=== PATIENT | male | born 1970 | race Caucasian/White ===

== ENCOUNTER 2018-11-11 22:44 | Outpatient (REF) | payer BC, SELFPAY | END 2018-11-11 23:04 | LOC: NCHCN 22:44 | PROVIDERS: PCP Family Medicine; Visit Provider Family Medicine | DX: R50.81 Fever presenting with conditions classified elsewhere (principal); L05.91 Pilonidal cyst without abscess | CPT/HCPCS: 87070; 87205 ==

== ENCOUNTER 2018-12-25 14:56 | Outpatient (CLI) | payer BC, SELFPAY ==
[2018-12-25 15:12] LABS: Abs Immature Grans 0.03 k/cumm (0.0-0.09); Absolute Basophil Count 0.04 k/cumm (0.0-0.2); Absolute Eosinophil Count 0.37 k/cumm (0.0-0.7); Absolute Lymphocyte Count 1.03 k/cumm (1.2-3.4); Absolute Monocyte Count 0.58 k/cumm (0.11-0.7); Absolute Neutrophil Count 6.99 k/cumm (1.2-6.7); Basophils % 0.4; Eosinophils % 4.1; HCT 43.2 % (40.0-50.0); HGB 14.7 g/dL (13.5-17.5); Immature Grans % 0.3; Lymphocytes % 11.4; Mean Corpuscular Hemoglobin 29.1 pg (27.0-33.0); Mean Corpuscular Volume 85.5 fL (80-95); Mean Platelet Volume 9.4 fL (8.0-11.0); Monocytes % 6.4; Neutrophils % 77.4; Platelet Count 249 x1000/uL (130-400); RBC 5.05 m/cumm (4.50-6.00); RBC Distribution Width 14.2 % (11.8-14.1); White Blood Cell Count 9.04 k/cumm (4.4-10.8)
[2018-12-25 15:23] LABS: Anion Gap 8.5 mmol/L (3-11); BUN 13 mg/dL (7-18); CO2 27.5 mmol/L (21.0-32.0); CREATININE 0.93 mg/dL (0.70-1.30); Calcium 8.9 mg/dL (8.5-10.1); Chloride 102 mmol/L (98-107); Glucose 89 mg/dL (70-100); Potassium 3.8 mmol/L (3.5-5.1); Sodium 138 mmol/L (136-145)
[2018-12-25 15:44] LABS: D-Dimer 776 ng/mlFEU (<500)
== END 2018-12-25 15:16 ==
PROVIDERS: PCP Family Medicine; Visit Provider Family Medicine
DX: R06.02 Shortness of breath (principal); R05 Cough; R07.9 Chest pain, unspecified
CPT/HCPCS: 36415; 80048; 85025; 85379

== ENCOUNTER 2018-12-25 17:07 | Emergency (ER) | payer BC, SELFPAY ==
[2018-12-25] VITALS (37 sets, daily range): BP systolic 131–161; BP diastolic 77–110; PULSE 71–92; RESP 1–25; TEMP 37.6; O2SAT 92–100
--- NOTE | 2018-12-25 17:26 | DI.CT_ITS ---
SYMPTOM/DIAGNOSIS: RT BASE RHONCHI, SOB, DDIMER SENT OUTPT ELEVATED CT ANGIOGRAPHY CHEST: 12/25 CT angiography was performed with multi slice acquisition and multi planar and 3D reconstruction. CT angiography of the chest was performed with a bolus infusion of 100 cc of Omnipaque 350. Images obtained through the upper abdomen show unremarkable appearance of visualized portions of liver, spleen, adrenals, kidneys and pancreas. There is no evidence of pulmonary embolic disease. No thoracic aortic dissection or aneurysm. No mediastinal or hilar adenopathy. Tracheobronchial tree appears intact. There are changes of linear pulmonary scarring in the lung bases particularly posteriorly. There is subpleural emphysema most prominent in the lung apices. Mild central lobular emphysema also noted. No focal consolidation seen. No pleural effusion seen. Questionable 3 mm right peripheral intrapulmonary nodule in the right lung base, this may represent an area of scarring but a follow up chest CT is recommended in 12 months to re-evaluate this finding particularly if the patient has a smoking history. CONCLUSION: No evidence of pulmonary embolic disease. Emphysema noted. Questionable 3 mm right lower lobe peripheral intrapulmonary nodule, follow up chest CT recommended in 12 months.
--- NOTE | 2018-12-25 17:28 | W.ED.GENAD ---
Discharge Plan Discharge Details Chief Complaint: SOB Primary Care Provider: Jenn Seals V ED Provider: Wilmer Monroe Home Meds and New Rx's Prescriptions: No Action acetaminophen [Tylenol] 325 MG tablet 650 mg PO Q4H PRN PRNQty: 30 RF: 0 Medical Decision Making 48-year-old male referred by Dr. Shah. 2 weeks ago he was treated for URI with Z-Torey and prednisone which she states resulted in improvement. Now with 2 days of recurrent cough, congestion and posterior right-sided discomfort with shortness of breath. He was seen in the office and given prescriptions for Augmentin and prednisone, and outpatient d-dimer was obtained which is elevated and therefore the patient referred to the emergency department. He arrives with normal oxygenation, afebrile, with an exam that reveals rhonchi at the right base. Differential diagnosis would consider pneumonia, must exclude PE given outpatient work-up, patient is at risk for dehydration as well. IV placed, labs obtained, patient given parenteral fluids, DuoNeb updraft, referred for CT scan of the chest. Patient improved with DuoNeb updraft and use of Acapella device. His diagnostic studies reveal a white blood cell count of 9, hematocrit 46, platelets 277. Chemistries with sodium 138, potassium 3.9, chloride 101, bicarb 25, BUN 12, creatinine 1.0, troponin < 0.05 CT: No pulmonary emboli. 3 mm right lung nodule with no routine follow-up indicated. No focal consolidation. Patient is improved. I do believe he has a resolving bronchitis and has had good production of sputum with Acapella device. I feel the previously prescribed course of Augmentin and prednisone is appropriate. He will initiate doses tonight. Additionally, patient provided an albuterol inhaler for as needed use during times of illness. Finally, he will work towards decreasing his tobacco use. ECG Data Attestation: I personally reviewed and interpreted this ECG (s) as follows: Interpretation: Normal sinus rhythm with a rate of 83, the QRS is narrow, there is no ST segment elevation HPI General Mode of arrival: ambulatory. Date/Time Provider Initiated Documentation: 12/25/18 17:15. Limitations to Documentation: no limitations. Information obtained by: patient. History of Present Illness 48 year old M presents to the emergency department with the chief complaint of Recurrent cough, pleuritic pain right side, described as moderate, Quality is described as dull, and is localized to the chest and right. Patient reports radiation to back. Patient started experiencing this hour(s) and it has been intermittent. No relieving factors improve symptom(s), Other factors that worsen symptoms (Coughing) . Patient notes malaise and weakness. Patient did receive the following treatments prior to arrival, none Related Data Home Medications Medication Instructions Recorded Confirmed acetaminophen [Tylenol] 650 mg PO Q4H PRN PRN #30 tab 06/04/17 12/25/18 Previous Rx's Medication Instructions Recorded acetaminophen [Tylenol] 650 mg PO Q4H PRN PRN #30 tab 06/04/17 Allergies Allergy/AdvReac Type Severity Reaction Status Date / Time ibuprofen [From Motrin] AdvReac GI bleed Unverified 10/31/18 10:19 General Stated Complaint: SOB ARAVIND: 3 Review of Systems Review of Systems Weak and lightheaded. No syncope. No fall or injury. No known sick contacts. 8 systems reviewed and otherwise neg [facility] Medical History Cervicalgia Chest pain Depression Foot pain, right Hypoglycemia Onychomycosis Pilonidal cyst Psoriasis Smoker Syncope Surgical History Excision, Pilonidal Cyst (06/04/17) Family History Mother No problems noted. Father Arthritis Kidney disorder COPD (chronic obstructive pulmonary disease) Brother Essential hypertension Social History Smoking/Tobacco Use Status: Current every day Tobacco Type: cigarettes Drug use: Occasionally Do you feel safe at home: Yes Do you feel safe in your relationship?: Yes Exam Narrative Exam Narrative: GEN: awake, alert, oriented 3. Pleasant, well groomed, interactive. HEAD: Normocephalic, atraumatic ENT: Mucous membranes moist, oropharynx unremarkable, External ear exam unremarkable EYES: PERRL, EOMI NECK: Full ROM, no SMILEY, no menigismus CHEST/RESP: Nontender, clear to auscultation bilateral, right base Rhonchi CARDIOVASCULAR: RRR, no murmur, rub jake. 2+ Rad pulse bilateral ABDOMEN: Soft, nontender, no mass. +Bowel sounds EXT: Full ROM, no edema, no rash Neuro: Grossly normal neurologic exam, conversant, interactive. Psych: Speech fluent, thoughts congruent, affect normal Course Vital Signs Temperature 37.6 C H 12/25/18 17:14 Pulse 79 12/25/18 17:14 Respiratory Rate 16 12/25/18 17:14 Blood Pressure 144/109 H 12/25/18 17:14 Pulse Oximetry 98 12/25/18 17:14 Temperature 37.6 C H 12/25/18 17:14 Pulse 79 12/25/18 17:14 Respiratory Rate 16 12/25/18 17:14 Blood Pressure 144/109 H 12/25/18 17:14 Blood Pressure Position Sitting 12/25/18 17:14 Pulse Oximetry 98 12/25/18 17:14 Oxygen Delivery Method Room Air 12/25/18 17:14 Oxygen Flow Rate 0 12/25/18 17:14
--- NOTE | 2018-12-25 17:36 | ED.GENADUL_ITS ---
Discharge Plan Discharge Details Chief Complaint: SOB Primary Care Provider: Jenn Seals V ED Provider: Wilmer Monroe Home Meds and New Rx's Prescriptions: No Action acetaminophen [Tylenol] 325 MG tablet 650 mg PO Q4H PRN PRNQty: 30 RF: 0 Medical Decision Making 48-year-old male referred by Dr. Shah. 2 weeks ago he was treated for URI with Z-Torey and prednisone which she states resulted in improvement. Now with 2 days of recurrent cough, congestion and posterior right-sided discomfort with shortness of breath. He was seen in the office and given prescriptions for Augmentin and prednisone, and outpatient d-dimer was obtained which is elevated and therefore the patient referred to the emergency department. He arrives with normal oxygenation, afebrile, with an exam that reveals rhonchi at the right base. Differential diagnosis would consider pneumonia, must exclude PE given outpatient work-up, patient is at risk for dehydration as well. IV placed, labs obtained, patient given parenteral fluids, DuoNeb updraft, referred for CT scan of the chest. Patient improved with DuoNeb updraft and use of Acapella device. His diagnostic studies reveal a white blood cell count of 9, hematocrit 46, platelets 277. Chemistries with sodium 138, potassium 3.9, chloride 101, bicarb 25, BUN 12, creatinine 1.0, troponin < 0.05 CT: No pulmonary emboli. 3 mm right lung nodule with no routine follow-up indicated. No focal consolidation. Patient is improved. I do believe he has a resolving bronchitis and has had good production of sputum with Acapella device. I feel the previously prescribed course of Augmentin and prednisone is appropriate. He will initiate doses tonight. Additionally, patient provided an albuterol inhaler for as needed use during times of illness. Finally, he will work towards decreasing his tobacco use. ECG Data Attestation: I personally reviewed and interpreted this ECG (s) as follows: Interpretation: Normal sinus rhythm with a rate of 83, the QRS is narrow, there is no ST segment elevation HPI General Mode of arrival: ambulatory . Date/Time Provider Initiated Documentation: 12/25/18 17:15 . Limitations to Documentation: no limitations . Information obtained by: patient . History of Present Illness 48 year old M presents to the emergency department with the chief complaint of Recurrent cough, pleuritic pain right side, described as moderate, Quality is described as dull, and is localized to the chest and right. Patient reports radiation to back. Patient started experiencing this hour(s) and it has been intermittent. No relieving factors improve symptom(s), Other factors that worsen symptoms (Coughing) . Patient notes malaise and weakness. Patient did receive the following treatments prior to arrival, none Related Data Home Medications Medication Instructions Recorded Confirmed acetaminophen [Tylenol] 650 mg PO Q4H PRN PRN #30 tab 06/04/17 12/25/18 Previous Rx's Medication Instructions Recorded acetaminophen [Tylenol] 650 mg PO Q4H PRN PRN #30 tab 06/04/17 Allergies Allergy/AdvReac Type Severity Reaction Status Date / Time ibuprofen [From Motrin] AdvReac GI bleed Unverified 10/31/18 10:19 General Stated Complaint: SOB ARAVIND: 3 Review of Systems Review of Systems Weak and lightheaded. No syncope. No fall or injury. No known sick contacts. 8 systems reviewed and otherwise neg [facility] Medical History Cervicalgia Chest pain Depression Foot pain, right Hypoglycemia Onychomycosis Pilonidal cyst Psoriasis Smoker Syncope Surgical History Excision, Pilonidal Cyst (06/04/17) Family History Mother No problems noted. Father Arthritis Kidney disorder COPD (chronic obstructive pulmonary disease) Brother Essential hypertension Social History Smoking/Tobacco Use Status: Current every day Tobacco Type: cigarettes Drug use: Occasionally Do you feel safe at home: Yes Do you feel safe in your relationship?: Yes Exam Narrative Exam Narrative: GEN: awake, alert, oriented 3. Pleasant, well groomed, interactive. HEAD: Normocephalic, atraumatic ENT: Mucous membranes moist, oropharynx unremarkable, External ear exam unremarkable EYES: PERRL, EOMI NECK: Full ROM, no SMILEY, no menigismus CHEST/RESP: Nontender, clear to auscultation bilateral, right base Rhonchi CARDIOVASCULAR: RRR, no murmur, rub jake. 2+ Rad pulse bilateral ABDOMEN: Soft, nontender, no mass. +Bowel sounds EXT: Full ROM, no edema, no rash Neuro: Grossly normal neurologic exam, conversant, interactive. Psych: Speech fluent, thoughts congruent, affect normal Course Vital Signs Temperature 37.6 C H 12/25/18 17:14 Pulse 79 12/25/18 17:14 Respiratory Rate 16 12/25/18 17:14 Blood Pressure 144/109 H 12/25/18 17:14 Pulse Oximetry 98 12/25/18 17:14 Temperature 37.6 C H 12/25/18 17:14 Pulse 79 12/25/18 17:14 Respiratory Rate 16 12/25/18 17:14 Blood Pressure 144/109 H 12/25/18 17:14 Blood Pressure Position Sitting 12/25/18 17:14 Pulse Oximetry 98 12/25/18 17:14 Oxygen Delivery Method Room Air 12/25/18 17:14 Oxygen Flow Rate 0 12/25/18 17:14
[2018-12-25] MEDS: Albuterol/Ipratropium 3 ML UPD VIAL UPD (17:45)
[2018-12-25 17:49] LABS: Abs Immature Grans 0.03 k/cumm (0.0-0.09); Absolute Basophil Count 0.03 k/cumm (0.0-0.2); Absolute Lymphocyte Count 1.12 k/cumm (1.2-3.4); Absolute Monocyte Count 0.56 k/cumm (0.11-0.7); Absolute Neutrophil Count 7.17 k/cumm (1.2-6.7); Basophils % 0.3; Eosinophils % 4.3; HCT 46.3 % (40.0-50.0); HGB 15.6 g/dL (13.5-17.5); Immature Grans % 0.3; Mean Corp. HGB Concentration 33.7 g/dL (32.0-36.0); Mean Corpuscular Hemoglobin 28.5 pg (27.0-33.0); Mean Corpuscular Volume 84.6 fL (80-95); Neutrophils % 77.1; Platelet Count 277 x1000/uL (130-400); RBC 5.47 m/cumm (4.50-6.00); RBC Distribution Width 14.4 % (11.8-14.1); White Blood Cell Count 9.31 k/cumm (4.4-10.8)
[2018-12-25 18:08] LABS: ALT 25 U/L (12-78); AST 14 U/L (15-37); Albumin 3.7 g/dL (3.4-5.0); Alkaline Phosphatase 72 U/L (46-116); Anion Gap 11.1 mmol/L (3-11); BUN 12 mg/dL (7-18); Bilirubin, Total 0.6 mg/dL (0.2-1.0); CO2 25.9 mmol/L (21.0-32.0); CREATININE 1.01 mg/dL (0.70-1.30); Calcium 9.2 mg/dL (8.5-10.1); Chloride 101 mmol/L (98-107); Glucose 101 mg/dL (70-100); Magnesium 2.2 mg/dL (1.8-2.4); Potassium 3.9 mmol/L (3.5-5.1); Sodium 138 mmol/L (136-145); Total Protein 7.9 g/dL (6.4-8.2)
[2018-12-25 18:11] LABS: Troponin I < 0.05 ng/mL (0.00-0.06)
[2018-12-25] MEDS: Omnipaque 350 MG/ML 100 ML BTL IJ (18:58)
--- NOTE | 2018-12-25 19:42 | DI.VRAD_ITS ---
EXAM: CT Angiography Chest With Contrast EXAM DATE/TIME: 12/25/2018 5:29 PM CLINICAL HISTORY: 48 years old, male; Shortness of breath and other: RT base ronchi, elevated d-dimer TECHNIQUE: Imaging protocol: Axial computed tomographic angiography images of the chest with intravenous contrast using CT angiography protocol. Coronal and sagittal reformatted images were created and reviewed. 3D rendering: MIP reconstructed images were created and reviewed. Radiation optimization: All CT scans at this facility use at least one of these dose optimization techniques: automated exposure control; mA and/or kV adjustment per patient size (includes targeted exams where dose is matched to clinical indication); or iterative reconstruction. Contrast material: [id number]; Contrast volume: 95 ml; Contrast route: IV 18G RIGHT AC; COMPARISON: No relevant prior studies available. FINDINGS: Pulmonary arteries: No pulmonary emboli. Aorta: No aortic aneurysm. No aortic dissection. Lungs: Bilateral changes of paraseptal emphysema. 3 mm right lung nodule, image 48. Pleural space: No pneumothorax. No pleural effusion. Heart: No cardiomegaly. No pericardial effusion. Lymph nodes: Unremarkable. No enlarged lymph nodes. Bones/joints: Unremarkable. No acute fracture. Soft tissues: Unremarkable. IMPRESSION: No pulmonary emboli. Paraseptal emphysema. 3 mm right lung nodule. For patients at low risk (minimal or absent history of smoking and of other known risk factors), no routine follow-up is indicated. For patients at high risk (history of smoking or of other known risk factors), consider optional CT at 12 months. (Bossman et al., Fleischner Society, 2017) Dictated and Authenticated by: Jose Esparza MD. Ordering:JERICA Guillen MD
[2018-12-25] MEDS: Ketorolac 15 MG/ML VIAL IVP (20:19)
[2018-12-25] MEDS: Albuterol HFA 8 GM 60 PUFF INH IH (20:21)
== END 2018-12-25 20:45 | disposition home or self-care (01) ==
PROVIDERS: Emergency Provider Emergency Medicine; PCP Family Medicine
DX: J20.9 Acute bronchitis, unspecified (principal)
CPT/HCPCS: 36415; 71275; 80053; 93005; 94640; 96374; 99285; 83735; 84484; 85025; 93010; J1885; J3490; J7620

== ENCOUNTER 2021-08-25 17:58 | Outpatient (REF) | payer BC, SELFPAY ==
[2021-08-25 21:17] LABS: Abs Immature Grans 0.02 10^3/uL (0.0-0.06); Absolute Basophil Count 0.07 10^3/uL (0.0-0.2); Absolute Eosinophil Count 0.48 10^3/uL (0.0-0.7); Absolute Lymphocyte Count 1.58 10^3/uL (1.2-3.4); Absolute Monocyte Count 0.51 10^3/uL (0.1-0.8); Absolute Neutrophil Count 7.34 10^3/uL (1.2-6.7); Basophils % 0.7; Eosinophils % 4.8; HCT 43.7 % (40.0-50.0); HGB 14.1 g/dL (13.5-17.5); Immature Grans % 0.2; Lymphocytes % 15.8; MCH 27.2 pg (27.0-33.0); MCHC 32.3 % (32.0-36.0); MCV 84.2 fL (80-95); MPV 10.8 fL (8.0-11.0); Monocytes % 5.1; Neutrophils % 73.4; Nucleated RBC 0 %; Platelet Count 325 10^3/uL (130-400); RBC 5.19 10^6/uL (4.36-5.78); RDW 12.6 % (11.8-14.1)
[2021-08-25 21:21] LABS: CREATININE 0.9 mg/dL (0.70-1.30)
== END 2021-08-25 17:59 | disposition home or self-care (01) ==
LOC: LBN 17:58
PROVIDERS: PCP Family Medicine; Visit Provider Physician Assistant Medical
DX: K62.5 Hemorrhage of anus and rectum (principal); K62.89 Other specified diseases of anus and rectum
CPT/HCPCS: 82565; 85025

== ENCOUNTER 2021-08-25 18:12 | Outpatient (CLI) | payer BC, SELFPAY ==
--- NOTE | 2021-08-25 | DI.RAD_ITS ---
Exam(s) XR ABDOMEN FLAT UPRIGHT EXAM: 2D digital imaging was performed. CLINICAL HISTORY: RECTAL PAIN. COMPARISON: No exams were available for comparison TECHNIQUE: Supine and upright views of the abdomen was performed. FINDINGS: LUNG BASES: Clear. BOWEL GAS PATTERN: Nondistended. FREE AIR: None. CALCIFICATIONS: No radiopaque calcifications. OSSEOUS STRUCTURES: Normal for age. OTHER FINDINGS: None. IMPRESSION: No evidence of an acute abdomen. DATA REPOSITORY: RADIATION DOSE DELIVERED:
--- NOTE | 2021-08-25 18:44 | DI.VRAD_ITS ---
PROCEDURE INFORMATION: Exam: XR Abdomen Exam date and time: 08/25/2021 6:14 PM Age: 51 years old Clinical indication: Other: Rectal pain TECHNIQUE: Imaging protocol: XR of the abdomen. Views: 2 Views. Upright and supine views. Total images: 4 COMPARISON: CT CHEST PE CTA 12/25/2018 6:56 PM FINDINGS: Heart/Mediastinum: Heart size normal. Lungs: The visualized lung bases are clear. Gastrointestinal tract: Nonobstructive bowel gas pattern. No evidence of pneumatosis or portal gas. Intraperitoneal space: No free air is evident. Organs: No evidence of organomegaly. Bones/joints: No acute osseous abnormalities. Other findings: No pathological calcifications. No gross soft tissue masses. IMPRESSION: No acute intra-abdominal/intrapelvic process is identified. Dictated and Authenticated by: James Torres MD. Ordering:ALEK Reddy MD
== END 2021-08-25 18:32 ==
LOC: DI 18:12
PROVIDERS: PCP Family Medicine; Visit Provider Physician Assistant Medical
DX: K62.89 Other specified diseases of anus and rectum (principal)
CPT/HCPCS: 74019

== ENCOUNTER 2021-11-06 11:25 | Day surgery (SDC) | payer BC, SELFPAY ==
--- NOTE | 2021-11-06 06:47 | W.COLOREPORT ---
Colonoscopy Report Date of procedure: 11/06/21 Pre-op diagnosis general: LLQ pain Post-op diagnosis procedure note: same Procedure: Colonoscopy Surgeon: Bella Bradley Anesthesia Type: General:No Airway Estimated blood loss (mL): 0 Pathology: none sent Complications: None Disposition: same day Indications: Mr. Burroughs is a 51-year-old with left lower quadrant abdominal pain and rectal bleeding.? He also has a left inguinal hernia.? He is a lot more tender than I would expect with a small inguinal hernia which is easily reduced.? I am also concerned about the 3 weeks of rectal bleeding that he had.? I recommend that we proceed with a colonoscopy first and then if that is negative we can talk about repairing his left inguinal hernia.? I discussed the colonoscopy in detail as well as the risks and benefits and he wished to proceed. Risks, benefits and complications have been reviewed. Complications include but are not limited to bleeding, pain, perforation, missed small lesion/polyp, sore throat, aspiration and adverse reaction to the medications. Questions were entertained and answered to their satisfaction and they wished to proceed. No guarantees were given or implied. Proceed with colonoscopy Prep: Miralax/Dulcolax Procedure Start Time: 13:04 Procedure End Time: 13:23 Retraction Time: 9 minutes Findings: Normal Procedure Description: After informed consent was obtained the patient was taken to the procedure room and placed in a left decubitous position. Monitors were applied and a time out was done. The patients name, date of , procedure, allergies to medications and metal in their body was reviewed. The patient was then sedated. Once sedated and comfortable a rectal exam was done. External exam was normal. Internal exam revealed a normal sphincter tone and no palpable masses. The prostate felt smooth. The scope was then introduced and retro-flexed. No internal hemorrhoids, polyps or masses were identified on retro-flexion. The scope was then advanced to the cecum without difficulty. The ileocecal vlave and appendiceal orifice were identified. The prep was adequate. The scope was then slowly retracted over 9 minutes back into the rectum. There were no polyps and no diverticulosis noted. The scope was removed and the patient was woken up and taken back to Same day surgery in stable condition. The patient tolerated the procedure well and there were no immediate complications. Follow up: The patient should follow up in 10 years unless they develop changes in bowel habits or other new gastrointestinal complaints.
--- NOTE | 2021-11-06 06:48 | PDOC.DSDIS_ITS ---
Discharge Plan Disposition Patient Disposition: HOME Condition: Good Discharge Details Reason For Visit: Colonoscopy Attending Provider: Bella Bradley Primary Care Provider: Jenn Seals V Home Meds and New Rx's Prescriptions: Continued docusate sodium 100 mg capsule 100 mg PO DAILY 0RF diazepam [Valium] 5 mg tablet 5 mg PO ONCE PRN0RF Rx Instructions: take 1 cap by mouth 30 - 60 minutes before dental appointments. nicotine [Nicoderm CQ] 14 mg/24 hr patch 24 hour 1 patch transdermal DAILY 0RF nicotine [Nicoderm CQ] 21 mg/24 hr patch 24 hour 1 patch transdermal DAILY 0RF albuterol sulfate [Ventolin HFA] 90 mcg/actuation HFA aerosol inhaler 2 puff inhalation Q6H PRN0RF acetaminophen [Tylenol] 325 MG tablet 650 mg PO Q4H PRN PRNQty: 30 0RF Discontinued polyethylene glycol 3350 [Miralax] 17 gram/dose powder 17 g PO DAILY 0RF Discharge Instructions Additional Instructions: Findings: Normal Follow up: 10 years for next colonoscopy Follow up in 2 weeks in the office to discuss your pain and potential inguinal hernia repair Please call if you develop: fevers >101.5 Nausea or Vomiting Abdominal pain that is not transient Rectal bleeding that is more then a tbsp A hard abdomen and inability to pass gas DAY SURGERY UNIT POST ENDOSCOPY INSTRUCTIONS Instructions for everyone who is given Anesthesia: For your safety, please do the following for the next 24 Hours: a. Do not drive or operate dangerous equipment b. Do not drink alcohol beverages or use any recreational drugs for the first 24 hours or while taking pain medications. The medications in your body may have a reaction that can be dangerous. c. Do not make any important decisions or sign any important papers 1. Generally there are no restrictions on your activity after a day or so has g one by, but you may feel a bit fatigued for a few days. 2. After you arrive home you may have a light meal and return to a normal diet as you can tolerate it without feeling sick to your stomach. 3. After surgery, you may feel pain or discomfort. This should be only transient, but if it persists please contact your doctor. 4. If there are any questions regarding the findings of your procedure, please feel free to contact your doctor. 6. If you are unable to contact your doctor with a problem, contact the hospital at [phone]. 7. Continue all your regular medications unless directed otherwise. I understand the above instructions and have no questions. Signature of Patient or Responsible Adult Escort Date/Time Name of Responsible Adult Escort Signature of Nurse Date/Time Activity:: Activity as Tolerated Diet:: As Tolerated Discharge Orders Discharge Orders: Discharge Order (Routine); Ordered 11/06/21 Ordered By: Bella Bradley
[2021-11-06 11:45] VITALS: BP 148/102; PULSE 85; RESP 16; TEMP 36.3; O2SAT 98
[2021-11-06] MEDS: Lactated Ringers 1,000 ML 80 ML IV (12:18)
--- NOTE | 2021-11-06 12:39 | ANES.PREOP_ITS ---
General Info Date of Service Date Performed: 11/06/21 Height: 5 ft 7 in Weight: 83 kg Body Mass Index (BMI): 28.6 Surgical Procedure: Operation Date: 11/06/21 13:05 Proposed Procedure Side Surgeon p Colonoscopy Bella Bradley MD Meds Allergies and Home Medications Allergies Allergy/AdvReac Type Severity Reaction Status Date / Time clindamycin Allergy Intermediate Verified 11/06/21 11:57 ibuprofen [From Motrin] AdvReac GI bleed Unverified 11/06/21 11:57 Home Medication Medication Instructions Recorded acetaminophen 325 mg tablet 650 mg PO Q4H PRN PRN #30 tab 06/04/17 (Tylenol) albuterol sulfate 90 mcg/actuation 2 puff INHALATION Q6H PRN 10/26/21 aerosol inhaler (Ventolin HFA) diazepam 5 mg tablet (Valium) 5 mg PO ONCE PRN tab 10/26/21 docusate sodium 100 mg capsule 100 mg PO DAILY 10/26/21 nicotine 14 mg/24 hr daily 1 patch TRANSDERMAL DAILY 10/26/21 transdermal patch (Nicoderm CQ) nicotine 21 mg/24 hr daily 1 patch TRANSDERMAL DAILY 10/26/21 transdermal patch (Nicoderm CQ) polyethylene glycol 3350 17 17 g PO DAILY 10/26/21 gram/dose oral powder (Miralax) Current Visit Medications: Current Medications Generic Name Dose Route Start Last Admin Trade Name Freq PRN Reason Stop Dose Admin Hyoscyamine Sulfate 0.125 mg 11/06/21 06:48 Hyoscyamine 0.125 Mg Sl/Oral/Chew SL DIRECTED PRN Ringer's Solution 1,000 mls @ 80 mls/hr 11/06/21 06:00 11/06/21 12:18 IV 12/03/21 23:59 80 mls/hr INFUSION LEANN Administration IV Miscellaneous Supplies 1 each 11/06/21 06:00 Iv Access IV 12/03/21 23:59 DIRECTED LEANN Ondansetron HCl 4 mg 11/06/21 06:48 Ondansetron 4 Mg/2 Ml Vial IVP Q4H PRN PRN Nausea / Vomiting Sodium Chloride 0 ml 11/06/21 06:00 Normal Saline Flush 10 Ml Syr IV 12/03/21 23:59 PRN PRN Sodium Chloride 0 ml 11/06/21 06:00 Normal Saline 10 Ml Vial IJ 12/03/21 23:59 DIRECTED PRN Sterile Water 0 ml 11/06/21 06:00 Water,Injection,Sterile 10 Ml Vial IJ 12/03/21 23:59 DIRECTED PRN PFSH Active Problems Active Problems: Problem Status Onset Code Abdominal pain R10.9 Left inguinal hernia K40.90 Shortness of breath R06.02 Bradycardia R00.1 Near syncope R55 LLQ pain R10.32 Medical History Medical History Abnormal findings on diagnostic imaging of lung Cervicalgia Chest pain pt. stated this ended up being acid reflux Cough Depression Foot pain, right Hypoglycemia Onychomycosis Pilonidal cyst Plantar fasciitis Psoriasis Rectal bleed Scalp lesion Smoker Squamous cell cancer of skin of forearm Syncope pt. stated this was diet related and hadn't eaten at all that day URI (upper respiratory infection) Urinary frequency Surgical History Surgical History (Updated 11/06/21 @ 11:57 by Luiza Moreno) Excision, Pilonidal Cyst (06/04/17) History of arthroscopic knee surgery Tobacco Smoking/Tobacco Use Status: Current every day Tobacco Type: cigarettes Alcohol Alcohol Intake: current Alcohol intake frequency: holidays/special occasions only Substance Use Substance use: Occasionally Substance use type: marijuana Vital Signs and Lab Results Vital Signs Most Recent Vital Signs in EMR: Most Recent Vital Signs Temp Pulse Resp BP Pulse Ox 36.3 C L 85 16 148/102 H 98 11/06/21 11:45 11/06/21 11:45 11/06/21 11:45 11/06/21 11:45 11/06/21 11:45 Lab Results Blood Type / Crossmatch: No Data to Display Complete Blood Count: 2 No Data to Display Complete Metabolic Panel: No Data to Display Liver Function Panel: No Data to Display Coagulation Panel: No Data to Display Cardiac Panel: No Data to Display Arterial Blood Gas: No Data to Display Venous Blood Gas: No Data to Display Pancreas Panel: No Data to Display Thyroid Panel: No Data to Display Infectious Disease: No Data to Display Blood Cultures: No Data to Display Toxicology Panel: No Data to Display Anesthesia Assessment and Plan Anesthesia History Personal History: No History of Anesthesia Complications Family History: No Family History of Anesthesia Complications Exercise Tolerance Exercise Tolerance: Metabolic Equivalents>4 Cardiac & Pulmonary Exam Cardiac Exam: Normal S1/S2 Heart Sounds Pulmonary Exam: Clear Bilateral Breath Sounds Implantable Cardiac Device Does patient have a Pacemaker or an ICD?: No Airway Exam Known Difficult Airway: No Mallampati Class: 2 Mouth Opening: Normal (> 3cm) Thyromental Distance: Greater than 3 cm Facial Hair: Full Block Neck Range of Motion: Full ROM Neck Circumference: Normal Teeth Condition: Normal Dentition ASA Classification ASA Score: ASA 2 Emergency Case?: No NPO Status NPO Status: NPO Clears >2 hours, Solids >8 hours Anesthesia Plan Resuscitation Status: Full Code Anesthesia Technique: General Anesthesia Airway Planned: Natural Airway Monitors Used: Standard Monitors
[2021-11-06 12:41] VITALS: BMI 28.6
[2021-11-06 13:32] VITALS: BP 150/107; PULSE 63; RESP 16; TEMP 36.3; O2SAT 100
--- NOTE | 2021-11-06 13:33 | W.ANESPOSTOP ---
Postoperative Evaluation Date, Time and Location Date Performed: 11/06/21 Time Performed: 13:33 Patient Location: Day Surgery Unit Vital Signs Most Recent Imported Vital Signs: Most Recent Vital Signs Temp Pulse Resp BP Pulse Ox 36.3 C L 85 16 148/102 H 98 11/06/21 11:45 11/06/21 11:45 11/06/21 11:45 11/06/21 11:45 11/06/21 11:45 Most Recent Manually Entered Vital Signs: Adult Blood Pressure: 150/107 Heart Rate: 75 Respirations: 10 Oxygen Saturation (%): 99 Temperature (C): 36.3 C Pain Score (0-10 Scale): 0 Assessment Mental Status: Awake (Alert & Oriented to Patient Baseline) Airway and Respiratory Function: Patent airway with normal (patient baseline) respiratory exam Cardiovascular Function: Hemodynamically Stable Hydration Status: Adequately Hydrated Nausea & Vomiting: No Nausea or Vomiting Pain: Pt. Denies Any Pain Peripheral Nerve Block: Patient did not receive a nerve block
[2021-11-06 13:34] VITALS: BP 150/107; PULSE 75; RESP 10; TEMPC 36.3; O2SAT 99
[2021-11-06 14:00] VITALS: BP 177/102; PULSE 55; RESP 16; TEMP 36.3; O2SAT 100
== END 2021-11-06 14:10 | disposition home or self-care (01) ==
LOC: SUR 11:26
PROVIDERS: PCP Family Medicine; Visit Provider Surgery
PROC: 0DJD8ZZ Inspection of Lower Intestinal Tract, Via Natural or Artificial Opening Endoscopic (ICD-10-PCS; CPT 45378; principal; 2021-11-06 13:00)
DX: R10.32 Left lower quadrant pain (principal); K62.5 Hemorrhage of anus and rectum
CPT/HCPCS: 45378

== ENCOUNTER 2022-01-02 02:56 | Outpatient (CLI) | payer BC, SELFPAY ==
[2022-01-02 10:06] LABS: Source Nasal/Nares
[2022-01-02 16:45] LABS: COVID-19 PCR Negative (Negative)
== END 2022-01-02 02:57 | disposition home or self-care (01) ==
PROVIDERS: PCP Family Medicine; Visit Provider Surgery
DX: Z20.822 Contact with and (suspected) exposure to COVID-19 (principal); Z01.818 Encounter for other preprocedural examination
CPT/HCPCS: 87635

== ENCOUNTER 2022-01-03 06:09 | Day surgery (SDC) | payer BC, SELFPAY ==
[2022-01-03] VITALS (13 sets, daily range): BP systolic 75–140; BP diastolic 44–90; PULSE 45–69; RESP 14–18; TEMP 36.4–36.6; O2SAT 98–100; BMI 27.1
--- NOTE | 2022-01-03 06:08 | W.PM.OP ---
Date of service: 01/03/22 Time of Service: 08:15 Operative Note Operative Note DATE OF PROCEDURE: 01/03/22 PRE-OP DIAGNOSIS: left inguinal hernia POST-OP DIAGNOSIS: same (direct) PROCEDURE: Left inguinal hernia repair with mesh SURGEON: Bella Bradley [employer] WORKER: Rohini Persaud Refer to Anesthesia Record ESTIMATED BLOOD LOSS: 5 PATHOLOGY: none sent COMPLICATIONS: None Patient was transported to: PACU Patient's condition: stable Implants: BARD Mesh: [id number] 2026-05-28 Indications: And is here today because he continues to have left lower quadrant abdominal pain.? He does have a small hernia on examination.? His colonoscopy was unremarkable.? The rectal bleeding has almost completely stopped as long as he takes his docusate as well as increases his fiber.? We discussed inguinal hernia repair with mesh.? We reviewed nerve injury resulting in chronic pain as well as infection bleeding and recurrence.? He wishes to proceed. Risks, benefits and complications have been reviewed. Complications include but are not limited to bleeding, infection, injury to vas, vessels and nerves, injury to bowel and adverse reaction to medications. Questions were entertained and answered to their satisfaction and they wished to proceed. Proceed with left inguinal hernia repair with mesh Findings: Small direct hernia Procedure Description: After informed concent was obtained the patient was taken to the operating room and placed in a supine position. Monitors and SCDs were applied and a timeout was done. The patient's name, date of , procedure type, procedure site, allergies to medications, preoperative antibiotic, and DVT prophylaxis were all reviewed. Fire risk was assessed. Next anesthesia did a tap block on the left side under ultrasound guidance. Please see their separate dictation. Once anesthesia was done the abdomen was prepped and draped in a sterile surgical fashion. 0.25% Marcaine was injected into the dermis in the left lower quadrant. An incision was made with a 10 blade in the left lower quadrant. Dissection was done with cautery through the subcutaneous tissues and Shelley's fascia down to the external oblique fascia. The external ring was identified and the external oblique fascia was opened sharply through the external ring. The cut fascia was grasped with hemostats the cord structures were identified and a Villisca drain was placed around them. The ilioinguinal nerve was identified and cut. The cremasteric muscle was dissected away from the cord structures using both cautery and blunt dissection. There was no hernia sac was identified. A flat piece of mesh was then attached to the lacunar ligament using a 2-0 Prolene double armed suture. The mesh was secured laterally and medially with a 2-0 Prolene, with a running suture. The tails of the mesh were wrapped around the cord structures effectively cinching down the internal ring. Once the mesh was secured the tissues were irrigated with some normal saline. No bleeding was identified. The external oblique fascia was reapproximated using 2-0 Vicryl running suture. The Shelley's fascia was reapproximated using interrupted 3-0 Vicryl. The dermis was reapproximated with a running 4-0 Vicryl. The skin was cleaned and dried and skin affix was applied. The patient was woken up and taken back to recovery in stable condition. There were no immediate complications. Sponge, instrument and needle counts were correct at the end of the case x2.
--- NOTE | 2022-01-03 06:14 | W.PM.DSUDISC ---
Discharge Plan Disposition Patient Disposition: HOME Condition: Good Discharge Details Reason For Visit: left inguinal hernia Attending Provider: Bella Bradley Primary Care Provider: Jenn Seals V Home Meds and New Rx's Prescriptions: Continued docusate sodium 100 mg capsule 100 mg PO DAILY diazepam [Valium] 5 mg tablet 5 mg PO ONCE PRN Rx Instructions: take 1 cap by mouth 30 - 60 minutes before dental appointments. nicotine [Nicoderm CQ] 14 mg/24 hr patch 24 hour 1 patch transdermal DAILY nicotine [Nicoderm CQ] 21 mg/24 hr patch 24 hour 1 patch transdermal DAILY albuterol sulfate [Ventolin HFA] 90 mcg/actuation HFA aerosol inhaler 2 puff inhalation Q6H PRN polyethylene glycol 3350 [Miralax] 17 gram/dose Powder 17 g PO DAILY acetaminophen [Tylenol] 325 MG tablet 650 mg PO Q4H PRN PRNQty: 30 0RF Discharge Instructions Instructions: Inguinal Hernia Repair (DC) Additional Instructions: Activity at Home after surgery: 1. Make sure you walk outside at least 4 times per day 2. You should be able to climb a flight of stairs 3. No driving while in pain or taking pain medications 4. No strenuous activity or heavy lifting for 4 weeks (open surgery) Diet, Nutrition, & wound healin. Avoid alcohol until after you are recovered from your surgery 2. Make sure to eat plenty of lean protein (meat, fish, eggs, cottage cheese, beans) 3. Eat a variety of fruits and vegetables. Eat plenty of high fiber foods to avoid constipation. 4. Drink plenty of liquids to stay hydrated and avoid constipation Pain Medications: 1. Tylenol 650mg every 6 hours as needed and Ibuprofen 600 mg every 6 hours as needed. You may alternate between the 2 medications every 3 hours 2. If a narcotic has been prescribed take as directed only for breakthrough pain For Constipation: 1. Take Milk of Magnesia or MiraLax as needed for constipation Other: 1. You may shower daily. Do not scrub the incisions 2. Do not soak the incisions for 1 week 3. You may alternate ice and heat as needed for pain and swelling Wound Care: 1. Keep the incisions clean and dry Please call our office if you develop: 1. Fevers >101.5 2. Nausea or Vomiting 3. Worsening pain 4. Redness and thick discharge from the wounds If after hours please call the Hospital at and ask to speak to the on-call surgeon Stand Alone Forms: Anesthesia Discharge Inst., [place].Nerve Block Instructions, Cristal Brock ([facility]) Referrals: Bella Bradley MD [ [facility] STAFF PHYSICIAN] - 01/16/22 8:00 am Activity:: as above Diet:: As Tolerated Discharge Orders Discharge Orders: Discharge Order (Routine); Ordered 01/03/22 Ordered By: Bella Bradley
[2022-01-03] MEDS: Acetaminophen 500 MG TAB 1000 MG PO (06:23)
[2022-01-03] MEDS: Gabapentin 300 MG CAP PO (06:23)
[2022-01-03] MEDS: Celecoxib 200 MG CAP PO (06:23)
--- NOTE | 2022-01-03 06:49 | W.ANESPRE ---
General Info Date of Service Date Performed: 01/03/22 Height: 5 ft 8 in Weight: 80.8 kg Body Mass Index (BMI): 27.1 Surgical Procedure: Operation Date: 01/03/22 07:40 Proposed Procedure Side Surgeon p Herniorrhaphy Inguinal Left Bella Bradley MD Meds Allergies and Home Medications Allergies Allergy/AdvReac Type Severity Reaction Status Date / Time clindamycin Allergy Intermediate Anaphylaxis Verified 01/03/22 06:38 ibuprofen [From Motrin] AdvReac GI bleed Unverified 01/03/22 06:38 Home Medication Medication Instructions Recorded acetaminophen 325 mg tablet 650 mg PO Q4H PRN PRN #30 tabs 06/04/17 (Tylenol) albuterol sulfate 90 mcg/actuation 2 puff inhalation Q6H PRN 10/26/21 aerosol inhaler (Ventolin HFA) diazepam 5 mg tablet (Valium) 5 mg PO ONCE PRN 10/26/21 docusate sodium 100 mg capsule 100 mg PO DAILY 10/26/21 nicotine 14 mg/24 hr daily 1 patch transdermal DAILY 10/26/21 transdermal patch (Nicoderm CQ) nicotine 21 mg/24 hr daily 1 patch transdermal DAILY 10/26/21 transdermal patch (Nicoderm CQ) polyethylene glycol 3350 17 17 g PO DAILY 01/03/22 gram/dose oral powder (Miralax) Current Visit Medications: Current Medications Generic Name Dose Route Start Last Admin Trade Name Freq PRN Reason Stop Dose Admin Acetaminophen 1,000 mg 01/03/22 06:00 01/03/22 06:23 Acetaminophen 500 Mg Tab PO 02/01/22 23:59 1,000 mg PREOP LEANN Administration Celecoxib 200 mg 01/03/22 06:00 01/03/22 06:23 Celecoxib 200 Mg Cap PO 02/01/22 23:59 200 mg PREOP LEANN Administration Gabapentin 300 mg 01/03/22 06:00 01/03/22 06:23 Gabapentin 300 Mg Cap PO 02/01/22 23:59 300 mg PREOP LEANN Administration Ringer's Solution 1,000 mls @ 80 mls/hr 01/03/22 06:00 IV 02/01/22 23:59 INFUSION LEANN Cefazolin Sodium/Dextrose 2 gm in 50 mls @ 100 mls/hr 01/03/22 06:00 Ancef Duplex IVPB 02/01/22 23:59 PREOP LEANN IV Miscellaneous Supplies 1 each 01/03/22 06:00 Iv Access IV 02/01/22 23:59 DIRECTED LEANN Oxycodone HCl 5 mg 01/03/22 06:16 Oxycodone 5 Mg Tab PO Q3H PRN PRN Pain Sodium Chloride 0 ml 01/03/22 06:00 Normal Saline Flush 10 Ml Syr IV 02/01/22 23:59 PRN PRN Sodium Chloride 0 ml 01/03/22 06:00 Normal Saline 10 Ml Vial IJ 02/01/22 23:59 DIRECTED PRN Sterile Water 0 ml 01/03/22 06:00 Water,Injection,Sterile 10 Ml Vial IJ 02/01/22 23:59 DIRECTED PRN PFSH Active Problems Active Problems: Problem Status Onset Code Abdominal pain R10.9 Left inguinal hernia K40.90 Shortness of breath R06.02 Bradycardia R00.1 Near syncope R55 LLQ pain R10.32 Medical History Medical History Abnormal findings on diagnostic imaging of lung Cervicalgia Chest pain pt. stated this ended up being acid reflux Cough Depression Foot pain, right Hypoglycemia Onychomycosis Pilonidal cyst Plantar fasciitis Psoriasis Rectal bleed Scalp lesion Smoker Squamous cell cancer of skin of forearm Syncope pt. stated this was diet related and hadn't eaten at all that day URI (upper respiratory infection) Urinary frequency Surgical History Surgical History (Updated 01/03/22 @ 06:43 by Keke Schulte) Excision, Pilonidal Cyst (06/04/17) History of arthroscopic knee surgery History of colonoscopy (~10/2021) S/P trigger finger release Tobacco Smoking/Tobacco Use Status: Current every day Tobacco Type: cigarettes Smoking cigarettes per day: 20 Alcohol Alcohol Intake: current Alcohol intake frequency: holidays/special occasions only Substance Use Substance use: Occasionally Substance use type: marijuana Vital Signs and Lab Results Vital Signs Most Recent Vital Signs in EMR: Most Recent Vital Signs Temp Pulse Resp BP Pulse Ox 36.4 C L 69 16 140/90 98 01/03/22 06:25 01/03/22 06:25 01/03/22 06:25 01/03/22 06:25 01/03/22 06:25 Lab Results Blood Type / Crossmatch: No Data to Display Complete Blood Count: No Data to Display Complete Metabolic Panel: No Data to Display Liver Function Panel: No Data to Display Coagulation Panel: No Data to Display Cardiac Panel: No Data to Display Arterial Blood Gas: No Data to Display Venous Blood Gas: No Data to Display Pancreas Panel: No Data to Display Thyroid Panel: No Data to Display Infectious Disease: Coronavirus (COVID-19)(PCR) Negative (Negative) 01/02/22 07:45 Coronavirus 2019 Source Nasal/Nares 01/02/22 07:45 Blood Cultures: No Data to Display Toxicology Panel: No Data to Display Anesthesia Assessment and Plan Anesthesia History Personal History: No History of Anesthesia Complications Family History: No Family History of Anesthesia Complications Exercise Tolerance Exercise Tolerance: Metabolic Equivalents>4 Pertinent Negatives Pertinent Negatives: No Symptoms of GERD, No Major Cardiovascular Symptoms or Complaints, No Major Pulmonary Symptoms or Complaints (Rare inhaler use) and No History of CVA/TIA Cardiac & Pulmonary Exam Cardiac Exam: Normal S1/S2 Heart Sounds Pulmonary Exam: Clear Bilateral Breath Sounds Implantable Cardiac Device Does patient have a Pacemaker or an ICD?: No Airway Exam Known Difficult Airway: No Mallampati Class: 2 Mouth Opening: Normal (> 3cm) Thyromental Distance: Greater than 3 cm Neck Range of Motion: Full ROM Neck Circumference: Normal Teeth Condition: Normal Dentition ASA Classification ASA Score: ASA 2 Emergency Case?: No NPO Status NPO Status: NPO Clears >2 hours, Solids >8 hours Anesthesia Plan Resuscitation Status: Full Code Anesthesia Technique: General Anesthesia Airway Planned: LMA Pain Management: Surgeon and patient request nerve block Monitors Used: Standard Monitors
[2022-01-03] MEDS: Lactated Ringers 1,000 ML 80 ML IV (06:57)
--- NOTE | 2022-01-03 07:02 | HPE_ITS ---
Assessment and Plan Assessment and plan (1) Left inguinal hernia: Status: Acute Assessment and plan: And is here today because he continues to have left lower quadrant abdominal pain.? He does have a small hernia on examination.? His colonoscopy was un remarkable.? The rectal bleeding has almost completely stopped as long as he takes his docusate as well as increases his fiber.? We discussed inguinal hernia repair with mesh.? We reviewed nerve injury resulting in chronic pain as well as infection bleeding and recurrence.? He wishes to proceed. Risks, benefits and complications have been reviewed. Complications include but are not limited to bleeding, infection, injury to vas, vessels and nerves, injury to bowel and adverse reaction to medications. Questions were entertained and answered to their satisfaction and they wished to proceed. Proceed with left inguinal hernia repair with mesh History of Present Illness Narrative: Ousmane is back to see me after his colonoscopy.? He has been doing the fiber and was doing well at not having any rectal bleeding.? This past weekend he decreased the amount of fiber and stool softeners he was taking and had another hard stool.? He had pain while going to the bathroom and then noted some blood.? I did not find any polyps at the time of his colonoscopy.? Ousmane also still continues to complain of left lower quadrant pain.? He does have a small hernia there.? He would like to have it repaired to see if this will take care of the pain.? I told him that his hernia is quite small so I am worried that this is not going to take care of all of his pain.? If he does have some pain left after I repair his hernia then physical therapy would be the next step. No changes in his health since he was seen Review of Systems All systems reviewed & are unremarkable except as noted in HPI and below PFSH All Active Problems Abdominal pain (Acute) Left inguinal hernia (Acute) Shortness of breath (Acute) Bradycardia (Acute) Near syncope (Acute) LLQ pain (Acute) Medical History Abnormal findings on diagnostic imaging of lung Cervicalgia Chest pain pt. stated this ended up being acid reflux Cough Depression Foot pain, right Hypoglycemia Onychomycosis Pilonidal cyst Plantar fasciitis Psoriasis Rectal bleed Scalp lesion Smoker Squamous cell cancer of skin of forearm Syncope pt. stated this was diet related and hadn't eaten at all that day URI (upper respiratory infection) Urinary frequency Surgical History Excision, Pilonidal Cyst (06/04/17) History of arthroscopic knee surgery History of colonoscopy (~10/2021) S/P trigger finger release Family History Mother No problems noted. Father Arthritis Kidney disorder COPD (chronic obstructive pulmonary disease) Brother Essential hypertension Social History Smoking/Tobacco Use Status: Current every day Tobacco Type: cigarettes Smoking risk assessment performed?: Yes Alcohol Intake: current Alcohol Intake frequency: holidays/special occasions only Drug use: Occasionally Substance use type: marijuana Current gender identity: male Do you feel safe at home: Yes Do you feel safe in your relationship?: Yes Meds Allergies and Home Medications Allergies Allergy/AdvReac Type Severity Reaction Status Date / Time clindamycin Allergy Intermediate Anaphylaxis Verified 01/03/22 06:38 ibuprofen [From Motrin] AdvReac GI bleed Unverified 01/03/22 06:38 Home Medications Medication Instructions Recorded Confirmed Type acetaminophen 325 mg tablet 650 mg PO Q4H PRN PRN #30 tabs 06/04/17 01/03/22 Rx (Tylenol) albuterol sulfate 90 mcg/actuation 2 puff inhalation Q6H PRN 10/26/21 01/03/22 History aerosol inhaler (Ventolin HFA) diazepam 5 mg tablet (Valium) 5 mg PO ONCE PRN 10/26/21 01/03/22 History docusate sodium 100 mg capsule 100 mg PO DAILY 10/26/21 01/03/22 History nicotine 14 mg/24 hr daily 1 patch transdermal DAILY 10/26/21 01/03/22 History transdermal patch (Nicoderm CQ) nicotine 21 mg/24 hr daily 1 patch transdermal DAILY 10/26/21 01/03/22 History transdermal patch (Nicoderm CQ) polyethylene glycol 3350 17 17 g PO DAILY 01/03/22 01/03/22 History gram/dose oral powder (Miralax) Exam Const General: comfortable and no acute distress HENMT Head: normocephalic and atraumatic Resp Effort & Inspection: normal respiratory effort Auscultation: clear to auscultation bilaterally Cardio Rate: regular rate Rhythm: regular rhythm GI Palpation: soft, no hepatosplenomegaly, hernia (left inguinal hernia) and tender Results Last Vital Signs Temp 97.5 F L 01/03/22 06:25 Pulse 69 01/03/22 06:25 Resp 16 01/03/22 06:25 BP 140/90 01/03/22 06:25 Pulse Ox 98 01/03/22 06:25
[2022-01-03] MEDS: ceFAZolin 2 GM/50 ML BAG IVPB (07:31)
--- NOTE | 2022-01-03 07:54 | W.ANESNERVE ---
Nerve Block Single Injection Procedure Date and Time Date Performed: 01/03/22 Procedure Start: 07:34 Location Where Procedure Performed Procedure Location: Operating Room Procedure Stop: 07:43 Reason Performed: Postoperative Analgesia Requesting Provider: Bella Bradley Timeout Performed Timeout Performed: Yes Monitoring Used ECG, Blood Pressure, SpO2, ETCO2 and See EMR for corresponding vital signs Sterility Sterility: Hand Hygiene, Surgical Cap, Surgical Mask, Sterile Gloves, Sterile Drape/Sheet and Chlorhexidine Sedation Given During Procedure Sedation Given (Indicate Dose Given): No Sedation given Patient Mental Status Patient Mental Status: Performed under general anesthesia Nerve Block 1st Nerve Block: Laterality: Left Block Type: TAP Unilateral Needle / Catheter Used: 120mm SonoPlex II Local Anesthetic Bolus (Indicate Dose Given): Injected in 3-5ml increments after negative blood aspiration and Bupivacaine 0.5% Dose:: 30 ml Additives (Indicate Dose Given): Precedex Dose:: 80 mcg Ultrasound: Sterile probe cover and gel used Ultrasound Image Saved?: Yes Nerve Stimulator: Not Used Paresthesia: None Procedure Tolerated: No Complications Procedure Outcome: Successful Performed By: Xena Hays
[2022-01-03] MEDS: ePHEDrine 25 MG/5 ML Syringe IVP (08:40)
[2022-01-03] MEDS: fentaNYL 100 MCG/2 ML VIAL IVP ×2 (09:29→09:40)
[2022-01-03] MEDS: oxyCODONE 5 MG TAB PO (10:26)
--- NOTE | 2022-01-03 11:30 | W.ANESPOSTOP ---
Postoperative Evaluation Date, Time and Location Date Performed: 01/03/22 Time Performed: 11:16 Patient Location: Day Surgery Unit Vital Signs Most Recent Imported Vital Signs: Most Recent Vital Signs Temp Pulse Resp BP Pulse Ox 36.4 C L 58 L 18 107/71 98 01/03/22 11:00 01/03/22 11:00 01/03/22 11:00 01/03/22 11:00 01/03/22 11:00 Pain Score Most Recent Pain Score: Most Recent Pain Score Pain Level 5 01/03/22 11:00 Assessment Mental Status: Awake (Alert & Oriented to Patient Baseline) Airway and Respiratory Function: Patent airway with normal (patient baseline) respiratory exam Cardiovascular Function: Hemodynamically Stable Hydration Status: Adequately Hydrated Nausea & Vomiting: No Nausea or Vomiting Pain: Pain is tolerable per patient Peripheral Nerve Block: Regional nerve block not resolved at time of post operative discharge
[2022-01-03] MEDS: Ketorolac 30 MG/ML VIAL IVP (11:54)
== END 2022-01-03 13:00 | disposition home or self-care (01) ==
PROVIDERS: PCP Family Medicine; Visit Provider Surgery
PROC: (CPT 49505; principal; 2022-01-03 07:30)
DX: K40.90 Unilateral inguinal hernia, without obstruction or gangrene, not specified as recurrent (principal); F17.210 Nicotine dependence, cigarettes, uncomplicated; K62.5 Hemorrhage of anus and rectum
CPT/HCPCS: 49505; 76942; C1781; J0690; J1100; J1885; J2405; J2704; J3010

== ENCOUNTER 2022-07-06 13:23 | Outpatient (REF) | payer BC, SELFPAY ==
[2022-07-06 16:02] LABS: ESR 4 mm/hr (0-15)
[2022-07-06 16:10] LABS: Calculated LDL 87 mg/dL (<100); Cholesterol 156 mg/dL (<200); HDL Cholesterol 52 mg/dL (40-60); Triglyceride 88 mg/dL (<150)
[2022-07-06 16:34] LABS: C-Reactive Protein 0.42 mg/dL (0.0-0.3); FREE T4 1.03 ng/dL (0.76-1.46)
[2022-07-06 16:50] LABS: Hemoglobin A1C 5.6 % (<5.7)
== END 2022-07-06 13:24 | disposition home or self-care (01) ==
LOC: NCHCN 13:23
PROVIDERS: PCP Family Medicine; Visit Provider Family Medicine
DX: Z00.00 Encounter for general adult medical examination without abnormal findings (principal); R03.0 Elevated blood-pressure reading, without diagnosis of hypertension; L40.9 Psoriasis, unspecified; R00.1 Bradycardia, unspecified; R94.6 Abnormal results of thyroid function studies; R79.82 Elevated C-reactive protein (CRP); Z13.220 Encounter for screening for lipoid disorders; Z13.1 Encounter for screening for diabetes mellitus
CPT/HCPCS: 80061; 85652; 83036; 84439; 84443; 86140

== ENCOUNTER 2023-06-05 17:55 | Outpatient (REF) | payer BC, SELFPAY | END 2023-06-05 17:56 | disposition home or self-care (01) | LOC: LBN 17:55 | PROVIDERS: PCP Family Medicine; Visit Provider Physician Assistant Medical | DX: L02.415 Cutaneous abscess of right lower limb (principal) | CPT/HCPCS: 87077; 87070; 87205 ==